=== PATIENT | female | born 1955 | race Caucasian/White ===

== ENCOUNTER → 2019-05-15 15:11 | Outpatient (CLI) | payer OTHER, SELFPAY ==
--- NOTE | 2019-05-15 | DI.US.S_ITS ---
PROCEDURE: US RENAL COMPLETE INDICATIONS: FLANK PAIN, Hx RENAL CA, CKD TECHNIQUE: Real-time scanning was performed of the kidneys and bladder, with image documentation. COMPARISON: None. FINDINGS: Kidneys: Right kidney measures 11.5 cm in length and the cortex measures 1 x 1 cm in thickness. There is mild right hydronephrosis. No sonographically detectable nephrolithiasis identified. Status post left nephrectomy. Bladder: Pre-void bladder volume is 373 mL. Post-void residual is 12 mL. Pre-void images demonstrate no intraluminal masses or stones. On pre-void images, the right ureteral jet is noted with color Doppler interrogation. Miscellaneous: No free pelvic fluid. IMPRESSION: Mild right hydronephrosis. Status post left nephrectomy. Dictated by: Toni Núñez M.D. on 05/15/2019 at 17:43 Approved by: Toni Núñez M.D. on 05/15/2019 at 17:45
== END ==
PROVIDERS: Family Provider Family Medicine; PCP Family Medicine; Visit Provider Internal Medicine
DX: R10.9 Unspecified abdominal pain (principal); N18.9 Chronic kidney disease, unspecified; N13.30 Unspecified hydronephrosis; Z85.528 Personal history of other malignant neoplasm of kidney; Z90.5 Acquired absence of kidney
CPT/HCPCS: 76770

== ENCOUNTER 2019-08-21 22:18 | Emergency (ER) | payer OTHER, SELFPAY ==
[2019-08-21 22:38] VITALS: BP 136/62; PULSE 48; RESP 18; TEMP 36.5; O2SAT 98; BMI 31.2
[2019-08-22 00:33] VITALS: BP 139/48; PULSE 53; O2SAT 100
--- NOTE | 2019-08-22 02:18 | ED.GENADULT ---
HPI - General Adult General Chief complaint: Diabetic Problem Stated complaint: HIGH BLOOD SUGAR Time Seen by Provider: 08/21/19 22:33 Source: patient and family Mode of arrival: Family Vehicle Limitations: no limitations History of Present Illness HPI narrative: 64-year-old female nonsmoker with history of diabetes presents with a chief complaint of elevated blood sugar noted at home. She states that she has not had access [place] medications [place] She denies any symptoms other than a vague headache. She has no chest pain or shortness of breath and is not dizzy nor weak or lightheaded. She denies any abdominal pain nor frequency of urination. She has no symptoms whatsoever. She had obtained her meds yesterday and took insulin prior to arrival. She states her BG was over 400 so she came in with her sister. Onset (ago): hour(s) Location: head Severity: mild Quality: aching Pain Consistency: intermittent Relieving factors: none Exacerbating factors: none Associated symptoms: denies other symptoms Treatments prior to arrival: none Review of Systems Constitutional Constitutional: Denies chills, Denies fatigue, Denies fever(s), Denies frequent falls, Reports headache(s), Denies lethargy and Denies weakness Eyes Eyes: Denies change in vision, Denies eye discharge, Denies irritation and Denies loss of vision ENT Ears, Nose, Mouth, and Throat: Denies change in voice, Denies dizziness, Reports headache(s), Denies neck pain, Denies sore throat and Denies throat swelling Cardiovascular Cardiovascular: Denies chest pain, Denies irregular heart rhythm, Denies lightheadedness, Denies palpitations, Denies dyspnea, Denies dyspnea on exertion and Denies orthopnea Respiratory Respiratory: Denies cough, Denies dyspnea, Denies dyspnea on exertion and Denies wheezing Gastrointestinal Gastrointestinal: Denies abdominal pain, Denies change in bowel habits, Denies diarrhea, Denies nausea and Denies vomiting Genitourinary Genitourinary: Denies hematuria, Denies flank pain, Denies urinary incontinence and Denies urinary urgency Musculoskeletal Musculoskeletal: Denies back pain, Denies muscle weakness, Denies neck pain, Denies numbness and Denies tingling Integumentary/Breasts Skin/Breast: Denies pruritus, Denies erythema, Denies rash and Denies wounds Neurologic Neurologic: Denies behavioral changes, Denies confusion, Denies dizziness, Denies frequent falls, Reports headache(s), Denies loss of vision, Denies numbness, Denies tingling and Denies weakness Psychiatric Psychiatric: Denies anxiety, Denies behavioral changes, Denies confusion, Denies depression, Denies homicidal ideation and Denies suicidal ideation Endocrine Endocrine: Denies fatigue, Denies flushing and Denies palpitations Hematologic/Lymphatic Hematologic/Lymphatic: Denies easy bruising Allergic/Immunologic Allergic/Immunologic: Denies urticaria, Denies throat swelling and Denies wheezing Patient History Social History Smoking Status: Never smoker Smoking Status: Never smoker alcohol intake frequency: other Substance Use Type: does not use Exam Narrative Exam Narrative: GEN: AOx3 and in no obvious distress EYES: Pupils are equal, round, and reactive to light and accommodation. Extraoccular muscles are intact bilaterally. There is no subconjunctival hemorrhage or exudate. CHEST: Lungs are clear to auscultation bilaterally and free of wheezes, rales, or rhonchi. Heart rate is regular rhythm, there are no murmurs, clicks, rubs, or gallops. There is no chest wall tenderness. ABD: Abdomen is soft and nontender. There is no guarding or rebound. Bowel sounds are normal in all 4 quadrants. There is no mass or organomegaly. EXT: Full painless ROM of all extremities with no loss of sensation or strength. SKIN: Warm, pink, and dry. No erythema or rash Initial Vital Signs Initial Vital Signs: Vital Signs Temperature 97.7 F 08/21/19 22:38 Pulse Rate 48 L 08/21/19 22:38 Respiratory Rate 18 08/21/19 22:38 Blood Pressure 136/62 08/21/19 22:38 Pulse Oximetry 98 08/21/19 22:38 Course Reevaluation(s) Reevaluation #1: repeat BG notes 265. Patient tolerating oral hydration. We had extensive discussion about utility of large workup with labs and IV. She is essentially here for asymptomatic hyperglycemia due to medical noncompliance. Her urine does not show ketones or evidence of dehydration as evidenced by normal specific gravity. Patient given extensive return precautions and she and sister are in agreement with plan and have had questions answered to their apparent satisfaction. Vital Signs Vital signs: Vital Signs - 8 hr 08/21/19 22:38 08/22/19 00:33 Temperature 97.7 F Pulse Rate 48 L 53 L Respiratory Rate 18 Blood Pressure 136/62 139/48 L Pulse Oximetry 98 100 Medical Decision Making Lab Data Labs: Point of Care Testing Glucose POC 265 Urine Dip Bedside Urine Glucose 500 mg/dl Bedside Urine Bilirubin - Negative Bedside Urine Ketone - Negative Urine Specific [place] 1.015 Bedside Urine Occult Blood - Negative Bedside Urine pH 6.0 Bedside Urine Protein - Negative Bedside Urine Urobilinogen - Negative Bedside Urine Nitrite - Negative Bedside Urine Leukocytes - Negative Esterase Point of care testing: Point of Care Testing Glucose POC 265 Urine Dip Bedside Urine Glucose 500 mg/dl Bedside Urine Bilirubin - Negative Bedside Urine Ketone - Negative Urine Specific [place] 1.015 Bedside Urine Occult Blood - Negative Bedside Urine pH 6.0 Bedside Urine Protein - Negative Bedside Urine Urobilinogen - Negative Bedside Urine Nitrite - Negative Bedside Urine Leukocytes - Negative Esterase Discharge Plan Departure Patient Disposition: Home Clinical Impression: Diabetes mellitus Qualifiers: Diabetes mellitus type: type 2 Diabetes mellitus longwall headgate operator insulin use: with intermediate use Diabetes mellitus complication status: with other specified complication Qualified Code(s): E11.69 - Type 2 diabetes mellitus with other specified complication Discharge Date/Time: 08/22/19 00:34 Instructions: DI for Dehydration -- Adult Activity Restrictions/Additional Instructions: *You have been diagnosed with [hyperglycemia secondary to medical noncompliance] *What to do: *Take medications as directed *Follow up with your primary care provider in 2-3 days, call for an appointment. Let them know you were seen in the Emergency Department and that we ask that you be seen in follow up *Return to ER if you should have any new, worsening or concerning symptoms Referrals: Jennifer Irizarry MD [Primary Care Provider] -
== END 2019-08-22 00:34 | disposition home or self-care (01) ==
PROVIDERS: Emergency Provider Emergency Medicine; Family Provider Family Medicine; PCP Family Medicine
DX: E11.65 Type 2 diabetes mellitus with hyperglycemia (principal); Z79.4 Long term (current) use of insulin
CPT/HCPCS: 81003; 82962; 99282

== ENCOUNTER → 2019-10-26 11:39 | Outpatient (CLI) | payer OTHER, SELFPAY ==
--- NOTE | 2019-10-26 | DI.CT.S_ITS ---
PROCEDURE: CT CHEST ABD PEL W CON INDICATIONS: Personal history of other malignant neoplasm of kidney TECHNIQUE: After the administration of oral and intravenous contrast, 5 mm thick sections acquired from the lung apices to the symphysis. 5 mm coronal and sagittal reformats were performed, with additional 7 mm coronal MIP reformats through the lungs. For radiation dose reduction, the following was used: automated exposure control, adjustment of mA and/or kV according to patient size. COMPARISON: Outside Facility, , CT THORAX WITH CONTRAST, 03/05/2018, 8:32. FINDINGS: Image quality: Excellent. CHEST: Lungs and pleura: Nodule #1: Series 3 image 85; 4 mm; right upper lobe; solid noncalcified. Nodule #2: Series 3 image 194; 4 mm; right lower lobe; solid noncalcified. Nodule #3: Series 3 image 76; 3 mm; left upper lobe; solid noncalcified. Nodule #4: Series 3 image 208; 5 mm; left lower lobe; solid noncalcified. Nodule #5: Series 3 image 215; 5 mm; left lower lobe; solid noncalcified. No acute airspace opacities. No pleural effusions or pneumothorax. Central and peripheral airways appear patent and normal in caliber. Mediastinum: Heart size is normal. No pericardial effusion. No mediastinal or hilar adenopathy by size criteria. Thoracic aorta and central pulmonary arteries are normal in size. Esophagus is normal in caliber. No hiatal hernia. Chest wall: No axillary or supraclavicular adenopathy by size criteria. Thyroid gland is normal. ABDOMEN: Solid organs: Liver is normal in size and enhancement. Gallbladder is surgically absent. Biliary system is non dilated. Pancreas enhances normally. Spleen is normal in size and enhancement. No adrenal nodules. Left kidney is surgically absent. Right kidney is normal size and enhancement. No renal masses. No hydronephrosis. Peritoneum and bowel: There is a moderate amount of stool in colon. Bowel loops demonstrate normal wall thickness and caliber. No free fluid or air. Nodes and vessels: No retroperitoneal or mesenteric adenopathy by size criteria. Aorta and inferior vena cava are normal in size. Miscellaneous: No ventral hernias. PELVIS: Genitourinary: Bladder wall thickness is normal. Uterus and ovaries are absent. Miscellaneous: No inguinal hernias or adenopathy. Bones: No suspicious bony lesions. No vertebral body compression fractures. Pars defects at L5 with grade 1 through 2 anterolisthesis of L5 on S1. Severe degenerative disc disease at L5-S1. There is internal fixation of old right femoral neck fracture. IMPRESSION: 1. Left nephrectomy. 2. No findings to suggest recurrent disease. 3. Multiple pulmonary nodules bilaterally. Recommend followup chest CT to document stability. Dictated by: Jaylyn Agarwal M.D. on 10/27/2019 at 14:31 Approved by: Jaylyn Agarwal M.D. on 10/27/2019 at 17:03
== END ==
PROVIDERS: Family Provider Family Medicine; PCP Internal Medicine; Referring Provider Internal Medicine; Visit Provider Urology
DX: R91.8 Other nonspecific abnormal finding of lung field (principal); Z85.528 Personal history of other malignant neoplasm of kidney; M51.37 Other intervertebral disc degeneration, lumbosacral region; Z90.5 Acquired absence of kidney; Z90.49 Acquired absence of other specified parts of digestive tract; Z90.710 Acquired absence of both cervix and uterus
CPT/HCPCS: 71260; 74177; Q9967

== ENCOUNTER → 2021-04-14 16:34 | Outpatient (CLI) | payer OTHER, SELFPAY ==
[2021-04-14 17:57] LABS: Hemoglobin A1C% w Est Avg Glu 11.3 % (4.0-6.0)
[2021-04-14 17:58] LABS: Alanine Aminotransferase 27 IU/L (<35); Albumin 4.4 g/dL (3.5-5.0); Albumin Globulin Ratio 1.5 (1.0-2.8); Alkaline Phosphatase 71 U/L (38-126); Aspartate Aminotransferase 30 IU/L (14-36); BUN Creatinine Ratio 23.8 (6-22); Bilirubin Total 0.8 mg/dL (0.2-1.3); Blood Urea Nitrogen 30 mg/dL (7-17); Calcium 9.1 mg/dL (8.4-10.2); Carbon Dioxide 24 mmol/L (22-32); Chloride 104 mmol/L (98-107); Cholesterol 187 mg/dL (140-199); Estimated Glomerular Filt Rate 42.8 mL/min (>60); Globulin 2.9 g/dL (1.7-4.1); Glucose 271 mg/dL (80-110); HDL Cholesterol 64 mg/dL (40-60); HEMOLYSIS < 15 (0-50); LDL Cholesterol Calculated 86 mg/dL (<100); Potassium 4.5 mmol/L (3.4-5.1); Sodium 137 mmol/L (137-145); Total Protein 7.3 g/dL (6.3-8.2); Triglycerides 185 mg/dL (35-150)
[2021-04-14 18:15] LABS: Free T4, Direct Thyroxine 1.05 ng/dL (0.78-2.19)
[2021-04-14 18:29] LABS: Thyroid Stimulating Hormone 1.19 uIU/mL (0.47-4.68)
== END ==
PROVIDERS: Family Provider Family Medicine; PCP Internal Medicine; Referring Provider Internal Medicine; Visit Provider Internal Medicine
DX: E78.2 Mixed hyperlipidemia (principal); E11.9 Type 2 diabetes mellitus without complications; E03.9 Hypothyroidism, unspecified
CPT/HCPCS: 36415; 80053; 80061; 83036; 84439; 84443

== ENCOUNTER → 2021-08-26 12:06 | Outpatient (CLI) | payer MEDICARE, OTHER, SELFPAY ==
[2021-08-26 13:02] LABS: BUN Creatinine Ratio 18.8 (6-22); Blood Urea Nitrogen 21 mg/dL (7-17); Calcium 9.9 mg/dL (8.4-10.2); Carbon Dioxide 29 mmol/L (22-32); Chloride 107 mmol/L (98-107); Estimated Glomerular Filt Rate 48.8 mL/min (>60); Glucose 262 mg/dL (80-110); HEMOLYSIS 61 (0-50); Potassium 5.5 mmol/L (3.4-5.1); Sodium 137 mmol/L (137-145)
[2021-08-26 13:12] LABS: Hemoglobin A1C% w Est Avg Glu 13.6 % (4.0-6.0)
== END ==
PROVIDERS: Family Provider Family Medicine; PCP Internal Medicine; Referring Provider Internal Medicine; Visit Provider Internal Medicine
DX: E11.65 Type 2 diabetes mellitus with hyperglycemia (principal)
CPT/HCPCS: 36415; 80048; 83036

== ENCOUNTER → 2021-11-03 11:41 | Outpatient (CLI) | payer MEDICARE, OTHER, SELFPAY ==
[2021-11-03 12:34] LABS: Hemoglobin A1C% w Est Avg Glu > 14.0 % (4.0-6.0)
[2021-11-03 13:11] LABS: BUN Creatinine Ratio 18.2 (6-22); Blood Urea Nitrogen 24 mg/dL (7-17); Calcium 9.5 mg/dL (8.4-10.2); Carbon Dioxide 27 mmol/L (22-32); Chloride 101 mmol/L (98-107); Estimated Glomerular Filt Rate 40.4 mL/min (>60); Glucose 371 mg/dL (80-110); HEMOLYSIS < 15 (0-50); Potassium 4.8 mmol/L (3.4-5.1); Sodium 136 mmol/L (137-145)
== END ==
PROVIDERS: Family Provider Family Medicine; PCP Internal Medicine; Referring Provider Internal Medicine; Visit Provider Internal Medicine
DX: E11.65 Type 2 diabetes mellitus with hyperglycemia (principal); E11.9 Type 2 diabetes mellitus without complications; Z79.4 Long term (current) use of insulin
CPT/HCPCS: 36415; 80048; 83036

== ENCOUNTER 2021-11-09 10:21 | Emergency (ER) | payer MEDICARE, OTHER, SELFPAY ==
[2021-11-09] VITALS (9 sets, daily range): BP systolic 115–123; BP diastolic 57–78; PULSE 56–66; RESP 18; TEMP 36.6; O2SAT 98–100; BMI 32.5
--- NOTE | 2021-11-09 10:50 | ED_ITS ---
HPI - Fall General Chief Complaint: Fall Stated Complaint: Fell in shower, hit head, left leg pain Time Seen by Provider: 11/09/21 10:39 Source: patient Mode of arrival: Ambulatory History of Present Illness HPI Narrative: Patient is a 66-year-old female insulin-dependent diabetic who presents after mechanical fall in the shower. She says she is staying at a friend's house cat sitting not use to the shower she slipped and fell hitting her head on a chair. She is sure she consciousness. She maybe feels a little nauseous. She was able to crawl out of the shower herself is a get herself dressed. She has no numbness tingling or weakness. She is complaining of neck pain left shoulder pain in left knee pain. She is able to ambulate. She is not on any anticoagulation medication. However aspirin is listed Related Data Home Medications Medication Instructions Recorded Confirmed aspirin 81 mg tablet,delayed 81 mg PO DAILY tab 03/03/21 11/03/21 release cranberry extract 650 mg capsule 650 mg PO DAILY cap 03/03/21 11/03/21 levothyroxine 125 mcg tablet 125 mcg PO DAILY tab 03/03/21 11/03/21 (Synthroid) turmeric 1,500 mg PO DAILY 03/03/21 11/03/21 Previous Rx's Medication Instructions Recorded losartan 25 mg tablet 12.5 mg PO BEDTIME #45 tab 03/03/21 simvastatin 40 mg tablet 40 mg PO BEDTIME #90 tab 03/03/21 citalopram 40 mg tablet 60 mg PO DAILY #135 tab 04/14/21 cyclobenzaprine 5 mg tablet 5 mg PO TID PRN #14 tab 08/12/21 flash glucose scanning reader #1 ea 09/04/21 (FreeStyle Jose 2 [place]) flash glucose sensor (FreeStyle #1 ea 09/04/21 Jose 2 Sensor) dulaglutide 0.75 mg/0.5 mL 0.75 mg (0.5 mL) SUBCUT QWEEK #2 ml 10/03/21 subcutaneous pen injector (Trulicity) fluconazole 150 mg tablet 150 mg PO Q OTHER DAY #4 tab 11/03/21 insulin aspart U-100 100 unit/mL 10 unit (0.1 mL) SUBCUT DAILY #45 11/03/21 (3 mL) subcutaneous pen (Novolog ml Flexpen U-100 Insulin aspart) insulin glargine 100 unit/mL (3 40 unit (0.4 mL) SUBCUT BID #45 ml 11/03/21 mL) subcutaneous pen (Lantus Solostar U-100 Insulin) Allergies Allergy/AdvReac Type Severity Reaction Status Date / Time metformin AdvReac Intermediate Verified 11/03/21 16:12 monostat AdvReac Intermediate Itching Uncoded 11/03/21 16:12 increase Review of Systems Review of Systems Narrative: GENERAL: Denies chills, fatigue, malaise, fever, sweats, travel HEENT: Denies sinus pain, ear pain, sore throat, difficulty swallowing, neck pain RESPIRATORY: Denies dyspnea, cough, wheezing, hemoptysis, sputum. CARDIOVASCULAR: Denies chest pain, palpitations, orthopnea, edema GASTROINTESTINAL: Denies nausea, vomiting, abdominal pain, diarrhea, constipation, melena. : Denies dysuria, frequency, incontinence, hematuria, urinary retention, flank pain. MUSCULOSKELETAL: See HPI SKIN: No rash, no erythema, no pruritus NEUROLOGIC: Denies weakness, dizziness, headache, numbness, change in speech, confusion PSYCHIATRIC: No concerning psychosocial issues. 12 point review of systems is negative except for those stated above and HPI Patient History Medical History (Updated 11/09/21 @ 11:42 by Jackie Diallo DO) Acquired hypothyroidism Chronic renal failure, stage 3a Depression (~1988) Diabetes type 2, controlled (~1999) Diabetes type 2, uncontrolled Long-term insulin use in type 2 diabetes Mitral valve prolapse (~1964) Mixed hyperlipidemia Renal cell carcinoma (~2018) Solitary kidney, acquired (~2018) Surgical History Status post appendectomy (~1961) Status post carpal tunnel release (~2010) Status post cholecystectomy (~1998) Status post nephrectomy (~2018) Social History Smoking Status: Never smoker Smoking Status: Never smoker alcohol intake frequency: other Substance Use Type: does not use Exam Initial Vital Signs Initial Vital Signs: Vital Signs Temperature 97.8 F 11/09/21 10:30 Pulse Rate 56 L 11/09/21 10:30 Respiratory Rate 18 11/09/21 10:30 Blood Pressure 118/58 L 11/09/21 10:30 Pulse Oximetry 99 11/09/21 10:30 GENERAL: Alert pleasant 66 year female HEENT: Head atraumatic,EOMI, pupils reactive, face symmetric, [moist] mucous membranes NECK: C-collar in palce Vertebral tenderness step-off CARDIOVASCULAR: Regular rate and rhythm without murmurs, rubs or gallops. RESPIRATORY: Breath sounds equal bilaterally, no wheezes rales or rhonchi. ABDOMEN: Soft, nontender. Normoactive bowel sounds all 4 quadrants. No guarding or rebound. EXTREMITIES: Normal range of motion, no clubbing or edema. Neurovascularly intact Left upper extremity no clavicle abnormality no obvious shoulder deformity sensation deltoid intact. Left lower extremity no obvious knee injury there is no contusion abrasion she is able to flex knee a little but does have decreased range of motion. Distal pedal pulses intact NEUROLOGICAL: Alert and oriented x4.Normal gait and speech. Cranial nerves II through XII grossly intact. Catalogue Maker strength equal bilaterally able to lift lower extremities without difficulty SKIN: Warm, dry, no laceration, no petechiae, no rashes or lesions. Course Orders Ordered: ED Orders 11/09/21 10:56 CT cervical spine wo con Stat CT head/brain wo con Stat XR knee LT 3V Stat XR shoulder LT min 2V Stat Vital Signs Vital signs: Vital Signs - 8 hr 11/09/21 11:30 11/09/21 11:31 11/09/21 11:53 Pulse Rate 63 61 66 Respiratory Rate 18 Blood Pressure 123/58 L 123/58 L Pulse Oximetry 99 98 98 11/09/21 12:00 11/09/21 12:01 Pulse Rate 62 61 Respiratory Rate 18 Blood Pressure 116/57 L Pulse Oximetry 99 100 MDM - Fall Imaging Data CT scan - head: Radiologist's Impression: PROCEDURE:? CT HEAD/BRAIN WO CON ? INDICATIONS:? fall ? TECHNIQUE:? Noncontrast 4.5 mm thick angled axial sections acquired from the foramen magnum to the vertex, with coronal and sagittal reformats.? For radiation dose reduction, the following was used:? automated exposure control, adjustment of mA and/or kV according to patient size.? ? COMPARISON:? None. ? FINDINGS:? Image quality:? Excellent.? ? CSF spaces:? Basal cisterns are patent.? No extra-axial fluid collections.? The ventricles are symmetric in size and shape.? ? Brain:? No intracranial bleeds or masses.? There is cerebral volume loss for age, with resultant ventricular and sulcal prominence.? There are periventricular and deep white matter chronic small vessel ischemic changes.? There is intracranial internal carotid artery atherosclerosis.? ? Skull and face:? Calvarium and visualized facial bones appear intact, without suspicious lesions.? ? Sinuses:? Visualized sinuses and mastoids are clear.? ? IMPRESSION:? ? 1. No acute intracranial process. ? 2. Mild atrophy and chronic microvascular ischemic changes. ? ? ? Dictated by: Aspen Cunningham M.D. on 11/09/2021 at 11:19 ? ? CT - cervical spine: Radiologist's Impression: PROCEDURE:? CT CERVICAL SPINE WO CON ? INDICATIONS:? fall neck pain ? TECHNIQUE:? Noncontrast 3 mm thick sections acquired from the skull base to the T4 level.? Sagittal and coronal reformats were then constructed.? For radiation dose reduction, the following was used:? automated exposure control, adjustment of mA and/or kV according to patient size.? ? COMPARISON:? None. ? FINDINGS:? Image quality:? Excellent.? ? Bones:? No fractures or dislocations.? Visualized superior ribs are intact.? Severe cervical spondylitic change.? Impressive multilevel right facet hypertrophy.? Multilevel uncovertebral joint hypertrophy with multilevel bony foraminal narrowing. ? Soft tissues:? Prevertebral soft tissues are normal in thickness.? No paravertebral hematomas.? No apical pneumothoraces.? ? ? IMPRESSION:? ? 1. Severe cervical spondylosis. ? 2. No evidence acute cervical fracture or dislocation. ? Dictated by: Owen Marcus M.D. on 11/09/2021 at 11:12 ? ? Approved by: Owen Marcus M.D. on 11/09/2021 at 11:20 ? Extremity x-ray #1: Radiologist's Impression: PROCEDURE:? XR KNEE LT 3V ? INDICATIONS:? fall ? TECHNIQUE:? 3 views of the knee were acquired.? ? COMPARISON:? None. ? FINDINGS:? ? Bones:? No fractures or dislocations.? No suspicious bony lesions.? Tricompartment degenerative arthritis, severe in the patellofemoral compartment. ? Soft tissues:? No joint effusion.? No suspicious soft tissue calcifications.? ? ? IMPRESSION:? Degenerative arthritis, with severe patellofemoral joint space loss. No evidence acute bony abnormality of the left knee. ? If clinical suspicion and/or symptoms persist, further assessment with repeat plain films, or advanced imaging (e.g., CT, MRI, or bone scan) may be helpful for further assessment. ? Dictated by: Owen Marcus M.D. on 11/09/2021 at 11:31 ? ? Extremity x-ray #2: Radiologist's Impression: PROCEDURE:? XR SHOULDER LT MIN 2V ? INDICATIONS:? fall ? TECHNIQUE:? 3 views of the shoulder were acquired.? ? COMPARISON:? None. ? FINDINGS:? ? Bones:? No fractures or dislocations.? No suspicious bony lesions.? Visualized ribs appear intact.? ? Soft tissues:? No suspicious soft tissue calcifications.? ? IMPRESSION:? No evidence acute bony abnormality of the left shoulder. ? If clinical suspicion and/or symptoms persist, further assessment with repeat plain films, or advanced imaging (e.g., CT, MRI, or bone scan) may be helpful for further assessment. ? Dictated by: Owen Marcus M.D. on 11/09/2021 at 11:32 ? ? Approved by: Owen Marcus M.D. on 11/09/2021 at 11:32 ? MDM Narrative Medical decision making narrative: Patient had a mechanical fall in the shower. Workup today is negative fortunately. Supportive care only. She is offered stronger pain medicine but does not want any narcotics and cannot take any NSAIDs. Discharge Plan Departure Patient Disposition: Home Clinical Impression: Neck strain Instructions: How to Prevent Falls Activity Restrictions/Additional Instructions: *You have been diagnosed with cervical strain *What to do: Increase activity as tolerated light activity is encouraged no strenuous activity. Recommend stretching heating pad ice. Expect to be very sore the next couple of days. *Continue to take medications as directed Tylenol 1000 mg every 6 hours if needed for pain *Follow up with your primary care provider in 2-3 days or call [phone] *Return to ER if you should have in increasing pain numbness tingling weakness or any new, worsening or concerning symptoms Prescriptions: No Action cyclobenzaprine 5 mg tablet 5 mg PO TID PRN (Reason: muscle spasm) Qty: 14 0RF Trulicity 0.75 mg/0.5 mL pen injector 0.75 mg SUBCUT QWEEK Qty: 2 4RF (DME) FreeStyle Jose 2 [place] Misc See Rx Instructions .Route Qty: 1 0RF Rx Instructions: As directed (DME) FreeStyle Jose 2 Sensor Kit See Rx Instructions .Route Qty: 1 12RF Rx Instructions: As directed levothyroxine [Synthroid] 125 mcg tablet 125 mcg PO DAILY 0RF aspirin 81 mg tablet,delayed release (DR/EC) 81 mg PO DAILY 0RF cranberry extract 650 mg capsule 650 mg PO DAILY 0RF Rx Instructions: administer with a meal turmeric 1,500 mg PO DAILY 0RF losartan 25 mg tablet 12.5 mg PO BEDTIME Qty: 45 3RF simvastatin 40 mg tablet 40 mg PO BEDTIME Qty: 90 3RF citalopram 40 mg tablet 60 mg PO DAILY Qty: 135 3RF Lantus Solostar U-100 Insulin 100 unit/mL (3 mL) insulin pen 40 unit SUBCUT BID Qty: 45 3RF insulin aspart U-100 [Novolog Flexpen U-100 Insulin] 100 unit/mL (3 mL) insulin pen 10 unit SUBCUT DAILY Qty: 45 3RF Rx Instructions: before each meal, three times a day fluconazole 150 mg tablet 150 mg PO Q OTHER DAY Qty: 4 1RF Referrals: Gonzales Gonzales MD [Primary Care Provider] -
--- NOTE | 2021-11-09 10:56 | DI.RAD.S_ITS ---
PROCEDURE: XR SHOULDER LT MIN 2V INDICATIONS: fall TECHNIQUE: 3 views of the shoulder were acquired. COMPARISON: None. FINDINGS: Bones: No fractures or dislocations. No suspicious bony lesions. Visualized ribs appear intact. Soft tissues: No suspicious soft tissue calcifications. IMPRESSION: No evidence acute bony abnormality of the left shoulder. If clinical suspicion and/or symptoms persist, further assessment with repeat plain films, or advanced imaging (e.g., CT, MRI, or bone scan) may be helpful for further assessment. Dictated by: Owen Marcus M.D. on 11/09/2021 at 11:32 Approved by: Owen Marcus M.D. on 11/09/2021 at 11:32
--- NOTE | 2021-11-09 10:56 | DI.CT.S_ITS ---
PROCEDURE: CT CERVICAL SPINE WO CON INDICATIONS: fall neck pain TECHNIQUE: Noncontrast 3 mm thick sections acquired from the skull base to the T4 level. Sagittal and coronal reformats were then constructed. For radiation dose reduction, the following was used: automated exposure control, adjustment of mA and/or kV according to patient size. COMPARISON: None. FINDINGS: Image quality: Excellent. Bones: No fractures or dislocations. Visualized superior ribs are intact. Severe cervical spondylitic change. Impressive multilevel right facet hypertrophy. Multilevel uncovertebral joint hypertrophy with multilevel bony foraminal narrowing. Soft tissues: Prevertebral soft tissues are normal in thickness. No paravertebral hematomas. No apical pneumothoraces. IMPRESSION: 1. Severe cervical spondylosis. 2. No evidence acute cervical fracture or dislocation. Dictated by: Owen Marcus M.D. on 11/09/2021 at 11:12 Approved by: Owen Marcus M.D. on 11/09/2021 at 11:20
--- NOTE | 2021-11-09 10:56 | DI.RAD.S_ITS ---
PROCEDURE: XR KNEE LT 3V INDICATIONS: fall TECHNIQUE: 3 views of the knee were acquired. COMPARISON: None. FINDINGS: Bones: No fractures or dislocations. No suspicious bony lesions. Tricompartment degenerative arthritis, severe in the patellofemoral compartment. Soft tissues: No joint effusion. No suspicious soft tissue calcifications. IMPRESSION: Degenerative arthritis, with severe patellofemoral joint space loss. No evidence acute bony abnormality of the left knee. If clinical suspicion and/or symptoms persist, further assessment with repeat plain films, or advanced imaging (e.g., CT, MRI, or bone scan) may be helpful for further assessment. Dictated by: Owen Marcus M.D. on 11/09/2021 at 11:31 Approved by: Owen Marcus M.D. on 11/09/2021 at 11:32
--- NOTE | 2021-11-09 10:56 | DI.CT.S_ITS ---
PROCEDURE: CT HEAD/BRAIN WO CON INDICATIONS: fall TECHNIQUE: Noncontrast 4.5 mm thick angled axial sections acquired from the foramen magnum to the vertex, with coronal and sagittal reformats. For radiation dose reduction, the following was used: automated exposure control, adjustment of mA and/or kV according to patient size. COMPARISON: None. FINDINGS: Image quality: Excellent. CSF spaces: Basal cisterns are patent. No extra-axial fluid collections. The ventricles are symmetric in size and shape. Brain: No intracranial bleeds or masses. There is cerebral volume loss for age, with resultant ventricular and sulcal prominence. There are periventricular and deep white matter chronic small vessel ischemic changes. There is intracranial internal carotid artery atherosclerosis. Skull and face: Calvarium and visualized facial bones appear intact, without suspicious lesions. Sinuses: Visualized sinuses and mastoids are clear. IMPRESSION: 1. No acute intracranial process. 2. Mild atrophy and chronic microvascular ischemic changes. Dictated by: Aspen Cunningham M.D. on 11/09/2021 at 11:19 Approved by: Aspen Cunningham M.D. on 11/09/2021 at 11:20
--- NOTE | 2021-11-09 11:45 | PC.NURSE ---
C collar removed by after cspine cleared
== END 2021-11-09 12:04 | disposition home or self-care (01) ==
PROVIDERS: Emergency Provider Emergency Medicine; Family Provider Family Medicine; PCP Internal Medicine
DX: S16.1XXA Strain of muscle, fascia and tendon at neck level, initial encounter (principal); W18.2XXA Fall in (into) shower or empty bathtub, initial encounter; Y92.008 Other place in unspecified non-institutional (private) residence as the place of occurrence of the external cause
CPT/HCPCS: 70450; 72125; 73030; 73562; 99283; 99284

== ENCOUNTER → 2022-01-08 09:46 | Outpatient (CLI) | payer MEDICARE, OTHER, SELFPAY ==
[2022-01-08 11:38] LABS: Add Manual Diff / Slide Review NO; Basophils Absolute Auto 100 /uL (0-100); Basophils Percent Auto 1.1 % (0-2); Eosinophils Absolute Auto 800 /uL (0-450); Eosinophils Percent Auto 13.1 % (2-4); Hematocrit 40.2 % (36-46); Hemoglobin 13.7 g/dL (12.0-16.0); Lymphocytes Absolute Auto 1600 /uL (1100-4500); Lymphocytes Percent Auto 26.4 % (25-40); Mean Corpuscular Hemoglobin 30.7 PG (26-34); Mean Corpuscular Volume 90.4 fL (80-100); Monocytes Absolute Auto 400 /uL (0-900); Monocytes Percent Auto 5.8 % (3-14); Neutrophils Absolute Auto 3300 /uL (1500-7000); Neutrophils Percent Auto 53.6 % (50-75); Platelet Count 251 X10^3/uL (150-400); Red Blood Cell Count 4.44 X10^6/uL (4.0-5.2); Red Cell Distribution Width 13.4 % (11.6-14.8); White Blood Cell Count 6.2 X10^3/uL (4.5-11.0)
[2022-01-08 12:20] LABS: Appearance Urine UA CLEAR; Bilirubin Urine UA NEGATIVE (NEGATIVE); Color Urine UA YELLOW; Glucose Urine UA 3+ g/dL (Negative); Ketones Urine UA TRACE (NEGATIVE); Leukocyte Esterase Urine UA NEGATIVE (NEGATIVE); Nitrite Urine UA NEGATIVE (Negative); Occult Blood Urine UA NEGATIVE (Negative); Protein Urine UA TRACE (Negative); Urobilinogen Urine UA 0.2 E.U./dL (0.2)
[2022-01-08 12:21] LABS: Alanine Aminotransferase 26 IU/L (<35); Albumin 4.2 g/dL (3.5-5.0); Albumin Globulin Ratio 1.3 (1.0-2.8); Alkaline Phosphatase 97 U/L (38-126); Aspartate Aminotransferase 35 IU/L (14-36); BUN Creatinine Ratio 16.4 (6-22); Bilirubin Total 0.6 mg/dL (0.2-1.3); Blood Urea Nitrogen 23 mg/dL (7-17); Calcium 8.9 mg/dL (8.4-10.2); Carbon Dioxide 25 mmol/L (22-32); Chloride 104 mmol/L (98-107); Estimated Glomerular Filt Rate 42 mL/min (>60); Globulin 3.2 g/dL (1.7-4.1); Glucose 468 mg/dL (80-110); HEMOLYSIS < 15 (0-50); Potassium 4.8 mmol/L (3.4-5.1); Sodium 136 mmol/L (137-145); Total Protein 7.4 g/dL (6.3-8.2)
[2022-01-08 12:45] LABS: Bacteria Urine Few (2-10); Culture Indicated Urine Cult Not Indicated; Hyaline Casts Urine 1-5/LPF; RBC Urine None Seen (0-5/HPF); Squamous Epithelial Cell Urine 5-10 /HPF (0-5/HPF); WBC Urine 1-5/HPF (0-5/HPF)
== END ==
PROVIDERS: Family Provider Family Medicine; PCP Internal Medicine; Referring Provider Physician Assistant Medical; Visit Provider Physician Assistant Medical
DX: C64.9 Malignant neoplasm of unspecified kidney, except renal pelvis (principal); Z90.5 Acquired absence of kidney
CPT/HCPCS: 36415; 80053; 81001; 85025